=== PATIENT | female | born 1950 ===

== ENCOUNTER 2020-08-01 02:14 | Outpatient (CLI) | payer MEDICARE, BC, SELFPAY ==
[2020-08-01 11:21] LABS: Hemoglobin A1C 6.6 % (<5.7)
[2020-08-01 11:34] LABS: CREATININE 1.03 mg/dL (0.55-1.02); Calculated LDL 89 mg/dL (<100); Cholesterol 198 mg/dL (<200); Estimated GFR 53.45 (mL/min/1.73m2); HDL Cholesterol 88 mg/dL (40-60); Potassium 3.5 mmol/L (3.5-5.1); Triglyceride 105 mg/dL (<150)
== END 2020-08-01 02:34 ==
PROVIDERS: PCP Nurse Practitioner; Visit Provider Nurse Practitioner
DX: I10 Essential (primary) hypertension (principal); E78.5 Hyperlipidemia, unspecified; E11.9 Type 2 diabetes mellitus without complications; Z79.4 Long term (current) use of insulin
CPT/HCPCS: 36415; 80061; 82565; 83036; 84132

== ENCOUNTER 2021-02-06 04:00 | Outpatient (CLI) | payer MEDICARE, BC, SELFPAY ==
[2021-02-06 12:38] LABS: TSH 0.43 uIU/mL (0.36-3.74)
[2021-02-06 12:39] LABS: Hemoglobin A1C 7.1 % (<5.7)
== END 2021-02-06 04:01 | disposition home or self-care (01) ==
LOC: LOS 04:01
PROVIDERS: PCP Nurse Practitioner; Visit Provider Nurse Practitioner
DX: E11.9 Type 2 diabetes mellitus without complications (principal)
CPT/HCPCS: 36415; 83036; 84443

== ENCOUNTER 2021-02-07 02:46 | Outpatient (CLI) | payer MEDICARE, BC, SELFPAY ==
--- NOTE | 2021-02-07 07:30 | DI.MAMMO_ITS ---
Exam(s) MG MAMMO SCREENING EXAM: MG MAMMO SCREENING CLINICAL HISTORY: screening, Z12.39 TECHNIQUE: Mammograms were interpreted according to the usual protocol including computer analysis w ith CAD system, tomosynthesis and C-view imaging. COMPARISON: MG SCREENING MAMMOGRAM - MASTER from 07/15/2015 MG SCREENING MAMMOGRAM - MASTER from 07/15/2015 MG SCREENING MAMMOGRAM - MASTER from 07/20/2016 MG SCREENING MAMMOGRAM - MASTER from 07/20/2016 MG SCREENING MAMMOGRAM - MASTER from 07/26/2017 MG SCREENING MAMMOGRAM - MASTER from 07/26/2017 MG SCREENING MAMMOGRAM - MASTER from 12/27/2018 MG SCREENING MAMMOGRAM - MASTER from 12/27/2018 FINDINGS: The breasts are composed of scattered fibroglandular densities, Breast Density category B. No suspicious masses or suspicious microcalcifications are seen. A biopsy marker clip is again noted in the lateral left breast. No skin thickening or abnormal axillary lymph nodes are seen. There has been no significant change from prior exams. IMPRESSION: BI-RADS Category 1, Negative mammogram Yearly screening mammography is recommended. Breast Density - Category B, scattered fibroglandular densities. A negative radiographic report should not delay biopsy if a dominant or clinically suspicious mass is present. Up to ten percent of cancers are not identified on mammography. A negative report may reinforce clinical impression. Adenosis and dense breasts may obscure an underlying neoplasm. False positive reports average 6 to 10%. Patient will receive a letter notifying them of these results.
== END 2021-02-07 03:06 ==
PROVIDERS: PCP Nurse Practitioner; Visit Provider Nurse Practitioner
DX: Z12.31 Encounter for screening mammogram for malignant neoplasm of breast (principal)
CPT/HCPCS: 77063; 77067

== ENCOUNTER 2021-08-26 02:41 | Outpatient (CLI) | payer MEDICARE, BC, SELFPAY ==
[2021-08-26 13:50] LABS: Hemoglobin A1C 6.6 % (<5.7)
[2021-08-26 14:10] LABS: COMMENT (LAB VIEW ONLY) 235.81 mg/dL; Microalb ug/mg Crea 23.7 ug/mg Cr
[2021-08-26 15:07] LABS: ALT 47 U/L (14-59); BUN 25 mg/dL (7-18); CREATININE 1.1 mg/dL (0.55-1.02); Calcium 10.5 mg/dL (8.5-10.1); Chloride 103 mmol/L (98-107); Estimated GFR 49.39 (mL/min/1.73m2); Glucose 131 mg/dL (74-106); Potassium 3.5 mmol/L (3.5-5.1); Sodium 142 mmol/L (136-145); TSH 0.84 uIU/mL (0.36-3.74)
[2021-08-26 15:15] LABS: CREATININE 1.1 mg/dL (0.55-1.02); Estimated GFR 49.39 (mL/min/1.73m2); Potassium 3.4 mmol/L (3.5-5.1)
[2021-08-26 15:33] LABS: Calculated LDL 93 mg/dL (<100); Cholesterol 218 mg/dL (<200); HDL Cholesterol 89 mg/dL (40-60); Triglyceride 181 mg/dL (<150)
== END 2021-08-26 02:42 | disposition home or self-care (01) ==
LOC: LBO 02:41
PROVIDERS: PCP Nurse Practitioner; Visit Provider Nurse Practitioner
DX: I10 Essential (primary) hypertension (principal); E11.9 Type 2 diabetes mellitus without complications
CPT/HCPCS: 36415; 80048; 80061; 82043; 82565; 82570; 83036; 84132; 84443; 84460

== ENCOUNTER → 2022-03-09 18:37 | Outpatient (CLI) | payer MEDICARE, BC, SELFPAY ==
--- NOTE | 2022-03-09 15:30 | DI.RAD_ITS ---
Exam(s) XR FOOT RT COMPLETE EXAM: XR FOOT RT COMPLETE CLINICAL HISTORY: Pain right foot--M79.671, 4th and 5th metatarsal TECHNIQUE: COMPARISON: No exams were available for comparison FINDINGS: Three views were obtained. There is a mild hallux valgus deformity. There are farmer articular degener ative changes of the foot, most marked involving the tarsal metatarsal joints but also involving the IP joints. No other significant bony or soft tissue abnormality seen. IMPRESSION: RADIATION DOSE DELIVERED: Total DLP
== END ==
PROVIDERS: PCP Nurse Practitioner; Visit Provider Physician Assistant
DX: M20.11 Hallux valgus (acquired), right foot (principal); M24.174 Other articular cartilage disorders, right foot
CPT/HCPCS: 73630

== ENCOUNTER 2022-03-12 14:41 | Emergency (ER) | payer MEDICARE, BC, SELFPAY ==
[2022-03-12 14:59] VITALS: BP 119/68; PULSE 108; RESP 18; TEMP 36.7; O2SAT 98
[2022-03-12 16:38] LABS: Abs Immature Grans 0.04 10^3/uL (0.0-0.06); Absolute Basophil Count 0.08 10^3/uL (0.0-0.2); Absolute Lymphocyte Count 2.26 10^3/uL (1.2-3.4); Absolute Monocyte Count 1.04 10^3/uL (0.1-0.8); Basophils % 0.7; Eosinophils % 0.8; HCT 39.5 % (36.0-46.0); HGB 14.1 g/dL (11.2-15.7); Immature Grans % 0.3; Lymphocytes % 18.9; MCH 30.3 pg (27.0-33.0); MCHC 35.7 % (32.0-36.0); MCV 85 fL (80-95); Monocytes % 8.7; Neutrophils % 70.6; Platelet Count 265 10^3/uL (130-400); RBC 4.65 10^6/uL (3.93-5.22); RDW 12.4 % (11.7-14.6); WBC 11.97 10^3/uL (4.4-10.8)
[2022-03-12 16:39] LABS: Absolute Neutrophil Count 8.45 10^3/uL (1.2-6.7)
[2022-03-12 16:41] LABS: ESR 62 mm/hr (0-30)
[2022-03-12] MEDS: Normal Saline 500 ML IV (16:50)
[2022-03-12] MEDS: oxyCODONE 5 mg/Acetaminophen 325 mg TAB 1 TAB PO (16:52)
[2022-03-12 16:56] LABS: Uric Acid 8.7 mg/dL (2.6-6.0)
[2022-03-12 17:34] LABS: ALT 26 U/L (14-59); AST 16 U/L (15-37); Albumin 3.8 g/dL (3.4-5.0); Alkaline Phosphatase 67 U/L (46-116); Anion Gap 14.4 mmol/L (3-11); BUN 24 mg/dL (7-18); Bilirubin, Total 0.6 mg/dL (0.2-1.0); C-Reactive Protein 15.04 mg/dL (0.0-0.3); CO2 26.6 mmol/L (21.0-32.0); CREATININE 1.3 mg/dL (0.55-1.02); Chloride 96 mmol/L (98-107); Estimated GFR 40.61 (mL/min/1.73m2); Glucose 203 mg/dL (74-106); Sodium 137 mmol/L (136-145); Total Protein 8.4 g/dL (6.4-8.2)
[2022-03-12] MEDS: Potassium Chloride 20 MEQ TABCR 40 MEQ PO (18:08)
[2022-03-12] MEDS: Normal Saline 1,000 ML 1000 ML IV (18:08)
[2022-03-12 19:23] LABS: Lactate 1.7 mmol/L (0.6-1.4)
[2022-03-12] MEDS: Colchicine 0.6 MG TAB 1.2 MG PO (19:24)
[2022-03-12] MEDS: Colchicine 0.6 MG TAB PO (19:25)
--- NOTE | 2022-03-12 19:43 | NUR.NOTE ---
Referral faxed to [facility] to f/u 03/13/22 if at all possible for swollen painful foot. ?Gout.Nursing Note:
[2022-03-12 19:46] VITALS: BP 115/72; PULSE 96; RESP 18; TEMP 36.7; O2SAT 98
--- NOTE | 2022-03-12 22:38 | W.ED.GENAD ---
Discharge Plan Disposition Patient Disposition: HOME Condition: Stable Discharge Details Clinical Impression: Gout attack, Foot swelling Primary Care Provider: Jami Salomon ED Provider: Sharonda Valle Home Meds and New Rx's Prescriptions: New potassium chloride 20 mEq tablet extended release 20 meq PO DAILY Qty: 7 0RF cephalexin 500 mg capsule 500 mg PO Q6H 7 Days Qty: 28 0RF Continued metformin 1,000 mg tablet 1,000 mg PO BID aspirin [Adult Aspirin Regimen] 81 mg tablet,delayed release (DR/EC) 81 mg PO DAILY alprazolam 1 mg tablet 1 mg PO DAILY PRN Rx Instructions: UP TO 5 MG prn insulin aspart U-100 [Novolog Flexpen U-100 Insulin] 100 unit/mL (3 mL) insulin pen 70 unit SC DAILY Basaglar KwikPen U-100 Insulin 100 unit/mL (3 mL) insulin pen 28 unit SC DAILY ezetimibe [Zetia] 10 mg tablet 10 mg PO DAILY Qty: 90 4RF levothyroxine 125 mcg capsule 125 mcg PO DAILY Qty: 90 4RF quinapril-hydrochlorothiazide 20-12.5 mg tablet See Rx Instructions PO DAILY Qty: 135 4RF Rx Instructions: 1.5 tabs PO daily; Shingrix (PF) 50 mcg/0.5 mL suspension for reconstitution 0.5 ml IM ONCE Qty: 1 0RF Rx Instructions: as a single dose cholecalciferol (vitamin D3) 50 mcg (2,000 unit) capsule 50 mcg PO DAILY Discharge Instructions Instructions: Gout (ED) Additional Instructions: Take the colchine an hour after first dose with persistent pain and swelling tomorrow, take the keflex with yogurt daily elevate your foot recheck in 24 hours drink at leas 8, 8oz glasses daily return earlier should you have new or worsening complaints Referrals: Jami Salomon, SARA [Primary Care Provider] - Discharge Data Discharge Date/Time-TO BE ENTERED AT DEPARTURE: 03/12/22 19:44 Medical Decision Making Patient afebrile, presenting with exam consistent with gout although given patient's diabetes history concern for cellulitis CRP is elevated, uric acid is elevated Reviewed x-ray from patient visit on Wednesday does not show significant acute abnormality Nonfocal neurological exam Erythema without warmth, swelling noted, started patient on questioning, received 1 dose in the emergency department and will take repeat dose in an hour Instructed to start antibiotics if she does not have improvement in the morning Creatinine clearance of 30 I think 2 doses of colchicine is reasonable Lactate initially 3, likely secondary to dehydration with gap of 14 Blood glucose of 200, bicarbonate normal limits, no evidence of diabetic ketoacidosis Received 1.5 L of normal saline and one half of water Lactate repeated 1.5 and Low suspicion for sepsis clinically Recheck in 24 hours recommended Given very low threshold to return with new HPI General Date/Time Provider Initiated Documentation: 03/12/22 15:33. HPI Narrative: This 71-year-old female with history of chronic kidney disease, hypothyroidism, hypertension, hyperlipidemia, diabetes presents with persistent and worsening right foot pain. She states that she has some pain that started suddenly in the lateral aspect on the fibular side of her foot approximately a week ago. She states this weakness progressed she has noticed swelling in excruciating pain. She states that even light touch from the blanket causes discomfort. She is having difficulty ambulating secondary to discomfort. She denies prior history of similar symptoms in the past. She specifically denies any history of gout. She states that today she checked her temp and thought it was 100.6 at home. She has not taken any Tylenol today and did not have a fever upon initial presentation at urgent care her review and documentation. She denies any chills. She states that secondary to pain she has had decreased interest in food or fluids. She felt like she might be dehydrated. She denies any vomiting or diarrhea. She has any tick bite. Pain is exacerbated with any sort of palpation or ambulation. Related Data Home Medications Medication Instructions Recorded Confirmed alprazolam 1 mg tablet 1 mg PO DAILY PRN 04/16/20 03/12/22 aspirin 81 mg tablet,delayed 81 mg PO DAILY 04/16/20 03/12/22 release (Adult Aspirin Regimen) metformin 1,000 mg tablet 1,000 mg PO BID 04/16/20 03/12/22 insulin aspart U-100 100 unit/mL 70 unit subcut DAILY 08/06/20 03/12/22 (3 mL) subcutaneous pen (Novolog Flexpen U-100 Insulin aspart) cholecalciferol (vitamin D3) 50 50 mcg PO DAILY 08/14/20 03/12/22 mcg (2,000 unit) capsule insulin glargine 100 unit/mL (3 28 unit subcut DAILY 02/06/21 03/12/22 mL) subcutaneous pen (Basaglar KwikPen U-100 Insulin) ezetimibe 10 mg tablet (Zetia) 10 mg PO DAILY #90 tabs 22 03/12/22 levothyroxine 125 mcg capsule 125 mcg PO DAILY #90 caps 08/28/21 03/12/22 quinapril 20 See Rx Instructions PO DAILY #135 08/28/21 03/12/22 mg-hydrochlorothiazide 12.5 mg tabs tablet varicella-zoster glycoE [id number] 0.5 ml IM ONCE #1 ea 08/28/21 03/12/22 adj(PF) 50 mcg/0.5 mL IM susp, kit (Shingrix (PF)) cephalexin 500 mg capsule 500 mg PO Q6H 7 days #28 caps 03/12/22 potassium chloride 20 mEq 20 meq PO DAILY #7 tabs 03/12/22 tablet,extended release Previous Rx's Medication Instructions Recorded ezetimibe 10 mg tablet (Zetia) 10 mg PO DAILY #90 tabs 08/28/21 levothyroxine 125 mcg capsule 125 mcg PO DAILY #90 caps 08/28/21 quinapril 20 See Rx Instructions PO DAILY #135 08/28/21 mg-hydrochlorothiazide 12.5 mg tabs tablet varicella-zoster glycoE [id number] 0.5 ml IM ONCE #1 ea 08/28/21 adj(PF) 50 mcg/0.5 mL IM susp, kit (Shingrix (PF)) cephalexin 500 mg capsule 500 mg PO Q6H 7 days #28 caps 03/12/22 potassium chloride 20 mEq 20 meq PO DAILY #7 tabs 03/12/22 tablet,extended release Allergies Allergy/AdvReac Type Severity Reaction Status Date / Time No Known Allergies Allergy Verified 03/12/22 15:02 General Stated Complaint: Cellulitis DENIA: 3 Review of Systems All systems reviewed & are unremarkable except as noted in HPI and below PFSH All Active Problems (Updated 03/12/22 @ 19:35 by JEANMARIE Mahajan) Gout attack (Acute) Foot swelling (Acute) Sciatic nerve pain (Acute) CKD stage 3 due to type 2 diabetes mellitus (Acute) Osteoarthritis (Chronic) Hypothyroid (Chronic) Hyperlipemia (Acute) HTN (hypertension) (Chronic) Diabetes (Chronic) Medical History Abnormal Pap smear of cervix (~1984) Cervical dysplasia Herpes zoster Family History Mother , 74 Diabetes Father , 66 Diabetes Stroke Maternal Grandfather , 84 No problems noted. Paternal Grandfather , 65's No problems noted. Maternal Grandmother , 100 No problems noted. Paternal Grandmother , 80's No problems noted. Social History Smoking/Tobacco Use Status: Former Tobacco Use tobacco type: cigarettes Tobacco: How many years used: 35 Second Hand Exposure: Yes Smoking risk assessment performed?: Yes Alcohol Intake: never Drug use: Never Substance use type: does not use Household members: spouse Housing: house Communication Needs: None Do you need help understanding health information?: Rarely Pets and animals: Yes Pets and animals: cat(s) Sexually active: Yes Do you think of yourself as: straight/heterosexual Current gender identity: female What is your relationship status?: How often do you talk on the phone with friends or family?: twice per week How often do you get together with friends or relatives?: once per week How often do you attend congregation or evangelical services?: decline to answer Do you belong to any clubs or organized social groups?: no Panel score (0-1 are the most socially isolated patients): 2 Gina/Church: No preference Seatbelt use: always Drive intox or ride w/intox race car driver: No Do you feel safe at home: Yes Do you feel safe in your relationship?: Yes Exam Const General: cooperative, comfortable and no acute distress Resp Effort & Inspection: normal respiratory effort Auscultation: clear to auscultation bilaterally Cardio Rate: tachycardic Rhythm: regular rhythm Heart Sounds: no murmurs Skin Other: See below Neuro General: patient alert and patient oriented x3 Sensory Exam: sensory deficits noted Extrem Other: Right lower extremity, specifically right foot with swelling, tenderness with light touch, mild erythema, DP and PT pulses intact, brisk capillary refill distally, sensation intact distally, no crepitus Course Vital Signs Vital signs: Vital Signs Temperature 36.7 C 03/12/22 14:59 Pulse 108 H 03/12/22 14:59 Respiratory Rate 18 03/12/22 14:59 Blood Pressure 119/68 03/12/22 14:59 Pulse Oximetry 98 03/12/22 14:59 Temperature 36.7 C 03/12/22 19:46 Temperature Source Temporal Artery Scan 03/12/22 14:59 Pulse 96 H 03/12/22 19:46 Respiratory Rate 18 03/12/22 19:46 Respiratory Effort Non-Labored 03/12/22 15:03 Blood Pressure 115/72 03/12/22 19:46 Blood Pressure Position Sitting 03/12/22 14:59 Pulse Oximetry 98 03/12/22 19:46 Oxygen Delivery Method Room Air 03/12/22 14:59 Oxygen Flow Rate 0 03/12/22 14:59 Pain Level 7 03/12/22 19:46 Lab/Test Results Lab/Test Results: 03/12/22 16:45 Blood Blood Culture - Pending 03/12/22 16:25 Blood Blood Culture - Pending Laboratory Tests Range/Units 03/12/22 03/12/22 03/12/22 16:25 16:25 16:25 WBC (4.4-10.8) 10^3/uL RBC (3.93-5.22) 10^6/uL Hgb (11.2-15.7) g/dL Hct (36.0-46.0) % MCV (80-95) fL MCH (27.0-33.0) pg MCHC (32.0-36.0) % RDW (11.7-14.6) % Plt Count (130-400) 10^3/uL MPV (8.0-11.0) fL Immature Gran % Neutrophils % Lymphocytes % Monocytes % Eosinophils % Basophils % Nucleated RBC % (0.0-0.3) % Absolute Neutrophils (1.2-6.7) 10^3/uL Absolute Lymphocytes (1.2-3.4) 10^3/uL Absolute Monocytes (0.1-0.8) 10^3/uL Absolute Eosinophils (0.0-0.7) 10^3/uL Absolute Basophils (0.0-0.2) 10^3/uL ESR (0-30) mm/hr 62 H VBG Lactate (0.6-1.4) mmol/L 3.0 H* Sodium (136-145) mmol/L 137 Potassium (3.5-5.1) mmol/L 3.0 L Chloride (98-107) mmol/L 96 L Carbon Dioxide (21.0-32.0) mmol/L 26.6 Anion Gap (3-11) mmol/L 14.4 H BUN (7-18) mg/dL 24 H Creatinine (0.55-1.02) mg/dL 1.3 H Estimated GFR/1.73 m2 (mL/min/1.73m2) 40.61 Glucose (74-106) mg/dL 203 H Uric Acid (2.6-6.0) mg/dL Calcium (8.5-10.1) mg/dL 10.0 Total Bilirubin (0.2-1.0) mg/dL 0.6 AST (15-37) U/L 16 ALT (14-59) U/L 26 Alkaline Phosphatase (46-116) U/L 67 C-Reactive Protein (0.0-0.3) mg/dL 15.04 H Total Protein (6.4-8.2) g/dL 8.4 H Albumin (3.4-5.0) g/dL 3.8 Range/Units 03/12/22 03/12/22 03/12/22 16:25 16:25 19:00 WBC (4.4-10.8) 10^3/uL 11.97 H RBC (3.93-5.22) 10^6/uL 4.65 Hgb (11.2-15.7) g/dL 14.1 Hct (36.0-46.0) % 39.5 MCV (80-95) fL 85 MCH (27.0-33.0) pg 30.3 MCHC (32.0-36.0) % 35.7 RDW (11.7-14.6) % 12.4 Plt Count (130-400) 10^3/uL 265 MPV (8.0-11.0) fL 10.0 Immature Gran % 0.3 Neutrophils % 70.6 Lymphocytes % 18.9 Monocytes % 8.7 Eosinophils % 0.8 Basophils % 0.7 Nucleated RBC % (0.0-0.3) % 0.0 Absolute Neutrophils (1.2-6.7) 10^3/uL 8.45 H Absolute Lymphocytes (1.2-3.4) 10^3/uL 2.26 Absolute Monocytes (0.1-0.8) 10^3/uL 1.04 H Absolute Eosinophils (0.0-0.7) 10^3/uL 0.10 Absolute Basophils (0.0-0.2) 10^3/uL 0.08 ESR (0-30) mm/hr VBG Lactate (0.6-1.4) mmol/L 1.7 H Sodium (136-145) mmol/L Potassium (3.5-5.1) mmol/L Chloride (98-107) mmol/L Carbon Dioxide (21.0-32.0) mmol/L Anion Gap (3-11) mmol/L BUN (7-18) mg/dL Creatinine (0.55-1.02) mg/dL Estimated GFR/1.73 m2 (mL/min/1.73m2) Glucose (74-106) mg/dL Uric Acid (2.6-6.0) mg/dL 8.7 H Calcium (8.5-10.1) mg/dL Total Bilirubin (0.2-1.0) mg/dL AST (15-37) U/L ALT (14-59) U/L Alkaline Phosphatase (46-116) U/L C-Reactive Protein (0.0-0.3) mg/dL Total Protein (6.4-8.2) g/dL Albumin (3.4-5.0) g/dL
== END 2022-03-12 19:44 | disposition home or self-care (01) ==
PROVIDERS: Emergency Provider Physician Assistant; PCP Nurse Practitioner
DX: M10.9 Gout, unspecified (principal); L53.9 Erythematous condition, unspecified; I12.9 Hypertensive chronic kidney disease with stage 1 through stage 4 chronic kidney disease, or unspecified chronic kidney disease; E11.22 Type 2 diabetes mellitus with diabetic chronic kidney disease; N18.9 Chronic kidney disease, unspecified; Z79.4 Long term (current) use of insulin; Z79.82 Long term (current) use of aspirin; Z87.891 Personal history of nicotine dependence
CPT/HCPCS: 36415; 80053; 85652; 87040; 96360; 96361; 99283; 83605; 84550; 85025; 86140; 99284

== ENCOUNTER 2022-04-02 18:17 | Outpatient (REF) | payer MEDICARE, BC, SELFPAY ==
[2022-04-02 21:34] LABS: Abs Immature Grans 0.07 10^3/uL (0.0-0.06); Absolute Basophil Count 0.04 10^3/uL (0.0-0.2); Absolute Eosinophil Count 0.29 10^3/uL (0.0-0.7); Absolute Lymphocyte Count 2.41 10^3/uL (1.2-3.4); Absolute Monocyte Count 1.06 10^3/uL (0.1-0.8); Basophils % 0.3; Eosinophils % 2.4; HCT 38.5 % (36.0-46.0); HGB 13.6 g/dL (11.2-15.7); Immature Grans % 0.6; MCH 29.7 pg (27.0-33.0); MCHC 35.3 % (32.0-36.0); MCV 84 fL (80-95); MPV 10.8 fL (8.0-11.0); Monocytes % 8.8; Neutrophils % 67.9; Platelet Count 308 10^3/uL (130-400); RBC 4.58 10^6/uL (3.93-5.22); RDW 12.9 % (11.7-14.6); RDW-SD 39.1 fL; WBC 12.07 10^3/uL (4.4-10.8)
[2022-04-02 21:57] LABS: ALT 34 U/L (14-59); AST 14 U/L (15-37); Albumin 3.4 g/dL (3.4-5.0); Alkaline Phosphatase 73 U/L (46-116); Anion Gap 11.7 mmol/L (3-11); BUN 32 mg/dL (7-18); Bilirubin, Total 0.3 mg/dL (0.2-1.0); CO2 28.3 mmol/L (21.0-32.0); CREATININE 1.2 mg/dL (0.55-1.02); Calcium 9.9 mg/dL (8.5-10.1); Chloride 100 mmol/L (98-107); Estimated GFR 44.54 (mL/min/1.73m2); Glucose 201 mg/dL (74-106); Potassium 3.2 mmol/L (3.5-5.1); Sodium 140 mmol/L (136-145); Total Protein 7.2 g/dL (6.4-8.2); Uric Acid 8.9 mg/dL (2.6-6.0)
== END 2022-04-02 18:18 | disposition home or self-care (01) ==
LOC: LBN 18:17
PROVIDERS: PCP Nurse Practitioner; Visit Provider Nurse Practitioner Family
DX: M10.9 Gout, unspecified (principal)
CPT/HCPCS: 80053; 84550; 85025

== ENCOUNTER 2022-05-28 04:02 | Outpatient (CLI) | payer MEDICARE, BC, SELFPAY ==
[2022-05-28 15:32] LABS: ALT 31 U/L (14-59); AST 20 U/L (15-37); Albumin 3.8 g/dL (3.4-5.0); Alkaline Phosphatase 68 U/L (46-116); Anion Gap 10.4 mmol/L (3-11); BUN 19 mg/dL (7-18); Bilirubin, Total 0.3 mg/dL (0.2-1.0); CO2 26.6 mmol/L (21.0-32.0); CREATININE 1.1 mg/dL (0.55-1.02); Calcium 9.5 mg/dL (8.5-10.1); Chloride 105 mmol/L (98-107); Estimated GFR 54.39 (mL/min/1.73m2); Glucose 242 mg/dL (74-106); Potassium 3.3 mmol/L (3.5-5.1); Sodium 142 mmol/L (136-145); Total Protein 7.8 g/dL (6.4-8.2)
[2022-05-29 12:56] LABS: Parathyroid Hormone,Intact 63 pg/mL (19-88)
[2022-06-02 15:41] LABS: PTH-Related Peptide 0.4 pmol/L (< or = 4.2)
== END 2022-05-28 04:03 | disposition home or self-care (01) ==
PROVIDERS: PCP Nurse Practitioner; Visit Provider Nurse Practitioner Family
DX: R79.89 Other specified abnormal findings of blood chemistry (principal)
CPT/HCPCS: 36415; 80053; 82306; 82397; 83970

== ENCOUNTER 2022-06-15 02:35 | Outpatient (CLI) | payer MEDICARE, BC, SELFPAY ==
[2022-06-15 14:20] LABS: ALT 51 U/L (14-59); AST 33 U/L (15-37); BUN 16 mg/dL (7-18); CREATININE 0.9 mg/dL (0.55-1.02); Calcium 9.8 mg/dL (8.5-10.1); Calculated LDL 105 mg/dL (<100); Chloride 104 mmol/L (98-107); Cholesterol 215 mg/dL (<200); Glucose 113 mg/dL (74-106); HDL Cholesterol 79 mg/dL (40-60); Potassium 3.3 mmol/L (3.5-5.1); Sodium 142 mmol/L (136-145); TSH 0.62 uIU/mL (0.36-3.74); Triglyceride 158 mg/dL (<150)
[2022-06-15 14:55] LABS: Vitamin D 25 Total 52.3 ng/mL (30-100)
== END 2022-06-15 02:36 | disposition home or self-care (01) ==
PROVIDERS: Student in an Organized Health Care Education/Training Program; PCP Nurse Practitioner Family; Visit Provider Internal Medicine Endocrinology, Diabetes & Metabolism
DX: E11.9 Type 2 diabetes mellitus without complications (principal); E83.52 Hypercalcemia
CPT/HCPCS: 36415; 80048; 80061; 82306; 84443; 84450; 84460

== ENCOUNTER 2022-07-06 03:16 | Outpatient (CLI) | payer MEDICARE, BC, SELFPAY ==
[2022-07-06 13:13] LABS: ALT 53 U/L (14-59); AST 34 U/L (15-37); Albumin 4.1 g/dL (3.4-5.0); Alkaline Phosphatase 80 U/L (46-116); Anion Gap 10.5 mmol/L (3-11); BUN 28 mg/dL (7-18); Bilirubin, Total 0.5 mg/dL (0.2-1.0); CO2 28.5 mmol/L (21.0-32.0); CREATININE 1.3 mg/dL (0.55-1.02); Calcium 10.3 mg/dL (8.5-10.1); Chloride 101 mmol/L (98-107); Estimated GFR 44.51 (mL/min/1.73m2); Glucose 157 mg/dL (74-106); Potassium 3.6 mmol/L (3.5-5.1); Sodium 140 mmol/L (136-145); Total Protein 8.2 g/dL (6.4-8.2); Uric Acid 5.2 mg/dL (2.6-6.0)
== END 2022-07-06 03:17 | disposition home or self-care (01) ==
PROVIDERS: PCP Nurse Practitioner Family; Visit Provider Nurse Practitioner Family
DX: I10 Essential (primary) hypertension (principal); M10.9 Gout, unspecified
CPT/HCPCS: 36415; 80053; 84550

== ENCOUNTER 2022-08-26 03:24 | Outpatient (CLI) | payer MEDICARE, BC, SELFPAY ==
[2022-08-26 14:49] LABS: ALT 53 U/L (14-59); AST 40 U/L (15-37); Alkaline Phosphatase 97 U/L (46-116); Anion Gap 10.3 mmol/L (3-11); BUN 18 mg/dL (7-18); Bilirubin, Total 0.5 mg/dL (0.2-1.0); CO2 28.7 mmol/L (21.0-32.0); CREATININE 0.9 mg/dL (0.55-1.02); Calcium 9.9 mg/dL (8.5-10.1); Chloride 105 mmol/L (98-107); Glucose 114 mg/dL (74-106); Potassium 3.3 mmol/L (3.5-5.1); Sodium 144 mmol/L (136-145); Total Protein 7.8 g/dL (6.4-8.2)
== END 2022-08-26 03:25 | disposition home or self-care (01) ==
LOC: LBO 03:24
PROVIDERS: PCP Nurse Practitioner Family; Visit Provider Nurse Practitioner Family
DX: I10 Essential (primary) hypertension (principal)
CPT/HCPCS: 36415; 80053

== ENCOUNTER 2022-10-05 02:39 | Outpatient (CLI) | payer MEDICARE, BC, SELFPAY ==
[2022-10-05 11:10] LABS: ALT 37 U/L (14-59); AST 19 U/L (15-37); Alkaline Phosphatase 100 U/L (46-116); Anion Gap 7.9 mmol/L (3-11); BUN 26 mg/dL (7-18); Bilirubin, Total 0.4 mg/dL (0.2-1.0); CO2 28.1 mmol/L (21.0-32.0); Calcium 10.2 mg/dL (8.5-10.1); Chloride 106 mmol/L (98-107); Estimated GFR 60.61 (mL/min/1.73m2); Glucose 181 mg/dL (74-106); Potassium 4.3 mmol/L (3.5-5.1); Sodium 142 mmol/L (136-145); Uric Acid 3.8 mg/dL (2.6-6.0)
== END 2022-10-05 02:40 | disposition home or self-care (01) ==
PROVIDERS: PCP Nurse Practitioner Family; Visit Provider Nurse Practitioner Family
DX: M10.9 Gout, unspecified (principal); E11.22 Type 2 diabetes mellitus with diabetic chronic kidney disease; I10 Essential (primary) hypertension; N18.30 Chronic kidney disease, stage 3 unspecified; Z79.4 Long term (current) use of insulin
CPT/HCPCS: 36415; 80053; 84550

== ENCOUNTER 2022-10-29 04:19 | Outpatient (CLI) | payer MEDICARE, BC, SELFPAY ==
[2022-10-29 16:13] LABS: Hemoglobin A1C 6.7 % (<5.7)
[2022-10-29 17:09] LABS: COMMENT (LAB VIEW ONLY) 219.14 mg/dL; Microalb ug/mg Crea 41.9 ug/mg Cr
== END 2022-10-29 04:20 | disposition home or self-care (01) ==
PROVIDERS: PCP Nurse Practitioner Family; Visit Provider Internal Medicine Endocrinology, Diabetes & Metabolism
DX: E11.65 Type 2 diabetes mellitus with hyperglycemia (principal)
CPT/HCPCS: 36415; 82043; 82570; 83036

== ENCOUNTER 2022-10-29 15:41 | Outpatient (CLI) | payer MEDICARE, BC, SELFPAY ==
--- NOTE | 2022-10-29 15:45 | DI.RAD_ITS ---
Exam(s) XR FOOT LT COMPLETE EXAM: XR FOOT LT COMPLETE CLINICAL HISTORY: foot pain M79.671 M79.672. TECHNIQUE: 2D digital imaging was performed of the left foot. Three images were obtained. AP, obli que and lateral views were obtained. COMPARISON: No priors for comparison. FINDINGS: BONES: No acute fracture is present. No bony destructive lesion is seen. There is a hallux valgus def ormity. There is a small enthesophyte at the posterior calcaneus. JOINTS: No dislocation present. There are degenerative changes seen in the left foot characterized by joint space narrowing and bony hypertrophy. Findings are most marked at the tarsometatarsal joints and 1st MTP joint. SOFT TISSUE: Atherosclerosis is present. IMPRESSION: Degenerative changes of the foot. DATA REPOSITORY: RADIATION DOSE DELIVERED:
--- NOTE | 2022-10-29 15:46 | DI.RAD_ITS ---
Exam(s) XR FOOT RT COMPLETE EXAM: XR FOOT RT COMPLETE CLINICAL HISTORY: foot pain M79.671 M79.672. TECHNIQUE: 2D digital imaging was performed of the right foot. Three images were obtained. AP, obl ique and lateral views were obtained. COMPARISON: CR XR FOOT RT COMPLETE from 03/09/2022 FINDINGS: BONES: No acute fracture is present. No bony destructive lesion is seen. There is a mild hallux valgu s deformity. JOINTS: No dislocation present. Degenerative changes are seen in the foot characterized by joint spac e narrowing and bony hypertrophy. The findings are most marked at the interphalangeal joints and the 1st MTP joint. SOFT TISSUE: Atherosclerosis. IMPRESSION: Degenerative changes of the right foot. DATA REPOSITORY: RADIATION DOSE DELIVERED:
== END 2022-10-29 16:01 ==
LOC: DI 15:42
PROVIDERS: PCP Nurse Practitioner Family; Visit Provider Podiatrist Foot & Ankle Surgery
DX: M79.671 Pain in right foot (principal); M79.672 Pain in left foot; M20.11 Hallux valgus (acquired), right foot; M19.071 Primary osteoarthritis, right ankle and foot; M19.072 Primary osteoarthritis, left ankle and foot; M20.12 Hallux valgus (acquired), left foot
CPT/HCPCS: 36415; 73630; 82043; 82570; 83036

== ENCOUNTER 2022-12-25 00:56 | Outpatient (CLI) | payer MEDICARE, BC, SELFPAY ==
--- NOTE | 2022-12-25 08:45 | DI.DEXA_ITS ---
Exam(s) XR DEXA BONE DENSITY W/WO MICHELLE EXAM: XR DEXA BONE DENSITY W/WO MICHELLE CLINICAL HISTORY: screening FOR OSTEOPOROSIS IN POSTMENOPAUSAL WOMAN,Z78.0 TECHNIQUE: COMPARISON: No exams were available for comparison FINDINGS: Lateral Spine Image: Unremarkable. No compression deformities identified. Left hip: Total T-Score: -1.0 Total Z-Score: 0.5 T- and Z-scores: Within normal limits. There is osteopenia in the femoral neck with a T-score of -2.1 . Lumbar Spine: Total T-Score: 2.0 Total Z-Score: 4.2 T- and Z-scores: Within normal limits. IMPRESSION: No evidence of osteoporosis.
--- NOTE | 2022-12-25 08:45 | DI.MAMMO_ITS ---
Exam(s) MAMMO SCREENING EXAM: MAMMO SCREENING CLINICAL HISTORY: screening,Z12.39 TECHNIQUE: Bilateral full field digital CC and MLO mammographic images were obtained with 3D tomosyn thesis and utilizing computer aided detection (CAD). COMPARISON: Available for comparison. FINDINGS: Masses/Architectural Distortion: There are stable nodules in both breasts. There is a biopsy clip in the left breast which is unchanged. No suspicious nodules or areas of architectural distortion are present. Microcalcifications: No suspicious pleomorphic-type are seen. Skin Thickening/Nipple Retraction: None. IMPRESSION: 1. No significant interval change with no specific features of malignancy noted. 2. Unless there is more urgent need, screening mammography is recommended, as per [employer] guidelines. BI-RADS Category 2 - Benign Findings Breast Density - Category B - Scattered areas of fibroglandular density Breast density category C or D implies that the patient has dense breast tissue. Dense breast tissue is very common and is not abnormal but dense breast tissue can make it harder to find cancer on a ma mmogram. Also, dense breast tissue may increase their breast cancer risk. This information about the result of the mammogram report was provided to the patient to raise their awareness. Use this report when you speak with the patient about their risks for breast cancer, which includes their family hist ory. At that time, you may recommend for more screening tests (Ultrasound or MRI) as they might be us eful based on their risk. A negative radiographic report should not delay biopsy if a dominant or clinically suspicious mass is present. Up to ten percent of cancers are not identified on mammography. A negative report may reinforce clinical impression. Adenosis and dense breasts may obscure an underlying neoplasm. False positive reports average 6 to 10%. Patient will receive a letter notifying them of these results.
== END 2022-12-25 01:16 ==
LOC: DI 00:57
PROVIDERS: PCP Nurse Practitioner Family; Visit Provider Nurse Practitioner Family
DX: Z12.31 Encounter for screening mammogram for malignant neoplasm of breast (principal); Z78.0 Asymptomatic menopausal state
CPT/HCPCS: 77063; 77067; 77080

== ENCOUNTER 2023-05-03 02:17 | Outpatient (CLI) | payer MEDICARE, BC, SELFPAY ==
[2023-05-03 12:53] LABS: BUN 20 mg/dL (7-18); Calcium 10.3 mg/dL (8.5-10.1); Chloride 106 mmol/L (98-107); Estimated GFR 60.61 (mL/min/1.73m2); Glucose 145 mg/dL (74-106); Potassium 3.6 mmol/L (3.5-5.1); Sodium 143 mmol/L (136-145)
== END 2023-05-03 02:18 | disposition home or self-care (01) ==
LOC: LBO 02:17
PROVIDERS: PCP Nurse Practitioner Family; Visit Provider Nurse Practitioner Family
DX: I10 Essential (primary) hypertension (principal)
CPT/HCPCS: 36415; 80048

== ENCOUNTER 2023-10-19 04:23 | Outpatient (CLI) | payer MEDICARE, SELFPAY ==
[2023-10-19 16:42] LABS: ALT 48 U/L (14-59); AST 32 U/L (15-37); Albumin 3.9 g/dL (3.4-5.0); Alkaline Phosphatase 83 U/L (46-116); Anion Gap 14.7 mmol/L (3-11); BUN 28 mg/dL (7-18); Bilirubin, Total 0.4 mg/dL (0.2-1.0); CO2 23.3 mmol/L (21.0-32.0); CREATININE 1.3 mg/dL (0.55-1.02); Calcium 10.4 mg/dL (8.5-10.1); Calculated LDL 84 mg/dL (<100); Chloride 106 mmol/L (98-107); Cholesterol 210 mg/dL (<200); Estimated GFR 43.96 (mL/min/1.73m2); Glucose 196 mg/dL (74-106); HDL Cholesterol 95 mg/dL (40-60); Potassium 3.5 mmol/L (3.5-5.1); Sodium 144 mmol/L (136-145); Triglyceride 156 mg/dL (<150)
== END 2023-10-19 04:24 | disposition home or self-care (01) ==
LOC: LBO 04:23
PROVIDERS: PCP Nurse Practitioner Family; Visit Provider Nurse Practitioner Family
DX: I10 Essential (primary) hypertension (principal); E03.9 Hypothyroidism, unspecified; E78.2 Mixed hyperlipidemia; M10.9 Gout, unspecified; E11.22 Type 2 diabetes mellitus with diabetic chronic kidney disease; N18.30 Chronic kidney disease, stage 3 unspecified; Z79.4 Long term (current) use of insulin
CPT/HCPCS: 36415; 80053; 80061; 82043; 82570; 84443

== ENCOUNTER 2023-10-20 16:56 | Outpatient (REF) | payer MEDICARE, SELFPAY ==
[2023-10-20 19:38] LABS: Microalb ug/mg Crea 177.5 ug/mg Cr
== END 2023-10-20 16:57 | disposition home or self-care (01) ==
LOC: LBN 16:56
PROVIDERS: PCP Nurse Practitioner Family; Visit Provider Nurse Practitioner Family
DX: I10 Essential (primary) hypertension (principal); E03.9 Hypothyroidism, unspecified; E11.22 Type 2 diabetes mellitus with diabetic chronic kidney disease; N18.30 Chronic kidney disease, stage 3 unspecified; Z79.4 Long term (current) use of insulin
CPT/HCPCS: 82043; 82570

== ENCOUNTER 2024-03-22 03:22 | Outpatient (CLI) | payer MEDICARE, BC, SELFPAY ==
[2024-03-22 12:50] LABS: Anion Gap 9.6 mmol/L (3-11); BUN 18 mg/dL (7-18); CO2 26.4 mmol/L (21.0-32.0); CREATININE 1.1 mg/dL (0.55-1.02); Calcium 9.4 mg/dL (8.5-10.1); Chloride 107 mmol/L (98-107); Estimated GFR 53.72 (mL/min/1.73m2); Glucose 115 mg/dL (74-106); Potassium 3.4 mmol/L (3.5-5.1); Sodium 143 mmol/L (136-145)
== END 2024-03-22 03:23 | disposition home or self-care (01) ==
PROVIDERS: PCP Nurse Practitioner Family; Visit Provider Nurse Practitioner Family
DX: E83.52 Hypercalcemia (principal)
CPT/HCPCS: 36415; 80048

== ENCOUNTER 2024-10-19 02:28 | Outpatient (CLI) | payer MEDICARE, BC, SELFPAY ==
[2024-10-19 15:26] LABS: HCT 39.7 % (36.0-46.0); HGB 13.5 g/dL (11.2-15.7); MCH 29.8 pg (27.0-33.0); MCV 88 fL (80-95); MPV 9.8 fL (8.0-11.0); Platelet Count 224 10^3/uL (130-400); RBC 4.53 10^6/uL (3.93-5.22); RDW 13.4 % (11.7-14.6); RDW-SD 42.7 fL; WBC 7.99 10^3/uL (4.4-10.8)
[2024-10-19 15:33] LABS: Hemoglobin A1C 6.5 % (<5.7)
[2024-10-19 17:15] LABS: ALT 37 U/L (14-59); AST 26 U/L (15-37); Albumin 4.1 g/dL (3.4-5.0); Alkaline Phosphatase 92 U/L (46-116); Anion Gap 11.2 mmol/L (3-11); BUN 25 mg/dL (7-18); Bilirubin, Total 0.4 mg/dL (0.2-1.0); CO2 26.8 mmol/L (21.0-32.0); CREATININE 1.1 mg/dL (0.55-1.02); Calcium 10.5 mg/dL (8.5-10.1); Calculated LDL 86 mg/dL (<100); Chloride 108 mmol/L (98-107); Cholesterol 219 mg/dL (<200); Estimated GFR 53.39 (mL/min/1.73m2); Glucose 95 mg/dL (74-106); HDL Cholesterol 101 mg/dL (>or=50); Sodium 146 mmol/L (136-145); TSH (W/Ref FT4) 0.14 uIU/mL (0.36-3.74); Triglyceride 164 mg/dL (<150)
[2024-10-20 10:52] LABS: Measles IgG Antibody Positive (See Note)
[2024-10-20 18:19] LABS: T4, Free 1.9 ng/dL (0.8-2.2)
== END 2024-10-19 02:29 | disposition home or self-care (01) ==
PROVIDERS: PCP Nurse Practitioner Family; Visit Provider Nurse Practitioner Family
DX: Z79.4 Long term (current) use of insulin (principal); E11.9 Type 2 diabetes mellitus without complications; Z00.00 Encounter for general adult medical examination without abnormal findings; E03.9 Hypothyroidism, unspecified; E11.22 Type 2 diabetes mellitus with diabetic chronic kidney disease; N18.30 Chronic kidney disease, stage 3 unspecified; I10 Essential (primary) hypertension; E78.2 Mixed hyperlipidemia
CPT/HCPCS: 36415; 80053; 80061; 85027; 83036; 84439; 84443; 86765

== ENCOUNTER 2024-11-09 01:27 | Outpatient (CLI) | payer MEDICARE, BC, SELFPAY ==
--- NOTE | 2024-11-09 07:45 | DI.MAMMO_ITS ---
Exam(s) MAMMO SCREENING EXAM: MAMMO SCREENING CLINICAL HISTORY: screening,Z12.39 TECHNIQUE: Bilateral full field digital CC and MLO mammographic images were obtained with 3D tomosyn thesis and utilizing computer aided detection (CAD). COMPARISON: Available for comparison. FINDINGS: Masses/Architectural Distortion: No suspicious masses or areas of architectural distortion are presen t. There are stable nodules in the right breast. There is a stable biopsy clip in the outer left br east. Microcalcifications: No suspicious pleomorphic-type are seen. Skin Thickening/Nipple Retraction: None. IMPRESSION: 1. No significant interval change with no specific features of malignancy noted. 2. Unless there is more urgent need, screening mammography is recommended, as per [employer] guidelines. BI-RADS Category 2 - Benign Findings Breast Density - Category A - Almost entirely fatty Breast density category C or D implies that the patient has dense breast tissue. Dense breast tissue is very common and is not abnormal but dense breast tissue can make it harder to find cancer on a ma mmogram. Also, dense breast tissue may increase their breast cancer risk. This information about the result of the mammogram report was provided to the patient to raise their awareness. Use this report when you speak with the patient about their risks for breast cancer, which includes their family hist ory. At that time, you may recommend for more screening tests (Ultrasound or MRI) as they might be us eful based on their risk. A negative radiographic report should not delay biopsy if a dominant or clinically suspicious mass is present. Up to ten percent of cancers are not identified on mammography. A negative report may reinforce clinical impression. Adenosis and dense breasts may obscure an underlying neoplasm. False positive reports average 6 to 10%. Patient will receive a letter notifying them of these results.
== END 2024-11-09 01:47 ==
LOC: DI 01:28
PROVIDERS: PCP Nurse Practitioner Family; Visit Provider Nurse Practitioner Family
DX: Z12.31 Encounter for screening mammogram for malignant neoplasm of breast (principal); R92.313 Mammographic fatty tissue density, bilateral breasts; D24.1 Benign neoplasm of right breast; D24.2 Benign neoplasm of left breast
CPT/HCPCS: 77063; 77067

== ENCOUNTER 2025-05-02 03:29 | Outpatient (CLI) | payer MEDICARE, BC, SELFPAY ==
--- NOTE | 2025-05-02 12:10 | DI.US_ITS ---
Exam(s) US ABDOMEN EXAM: US ABDOMEN CLINICAL HISTORY: LUQ pain, intermittent,r10.12 TECHNIQUE: Ultrasound abdomen performed using standard protocol. COMPARISON: No exams were available for comparison FINDINGS: ABDOMINAL AORTA AND IVC: Visualized portions normal caliber. PANCREAS: Normal where visualized. LIVER: There is diffuse increased echogenicity of the liver consistent with fatty infiltration. Hepatopetal flow in the Portal Vein. No evidence of a hepatic mass. The liver measures 16.3cm long. GALLBLADDER:No evidence of cholelithiasis. No evidence of wall thickening. No pericholecystic fluid identified. BILIARY SYSTEM: Common bile duct measures < 7 mm. No intrahepatic biliary ductal dilation. GARCES'S SIGN: Negative. KIDNEYS: Kidneys are symmetric in size. Nonobstructing renal stones are seen on the left kidney. The largest measures 5 mm and is located in the midpole. No evidence of hydronephrosis. No renal mass or cyst identified. SPLEEN: Not enlarged. ASCITES: None seen. IMPRESSION: 1. Hepatic steatosis. 2. Left nephrolithiasis. No obstructive uropathy. DATA REPOSITORY:
== END 2025-05-02 03:49 ==
LOC: DI 03:29
PROVIDERS: PCP Nurse Practitioner Family; Visit Provider Nurse Practitioner Family
DX: K76.0 Fatty (change of) liver, not elsewhere classified (principal); N20.0 Calculus of kidney
CPT/HCPCS: 76700

== ENCOUNTER 2025-05-02 04:05 | Outpatient (CLI) | payer MEDICARE, BC, SELFPAY ==
[2025-05-02 12:08] LABS: HCT 37.0 % (36.0-46.0); HGB 12.7 g/dL (11.2-15.7); MCH 29.6 pg (27.0-33.0); MCHC 34.3 % (32.0-36.0); MCV 86 fL (80-95); MPV 10.3 fL (8.0-11.0); Platelet Count 220 10^3/uL (130-400); RBC 4.29 10^6/uL (3.93-5.22); RDW 13.3 % (11.7-14.6); RDW-SD 41.3 fL; WBC 6.38 10^3/uL (4.4-10.8)
[2025-05-02 12:47] LABS: ALT 36 U/L (14-59); AST 22 U/L (15-37); Albumin 3.9 g/dL (3.4-5.0); Alkaline Phosphatase 72 U/L (46-116); Amylase 70 U/L (25-115); Anion Gap 10.5 mmol/L (3-11); BUN 21 mg/dL (7-18); Bilirubin, Total 0.5 mg/dL (0.2-1.0); CO2 28.5 mmol/L (21.0-32.0); Calcium 9.9 mg/dL (8.5-10.1); Chloride 106 mmol/L (98-107); Estimated GFR 59.86 (mL/min/1.73m2); Glucose 122 mg/dL (74-106); Lipase 60 U/L (<78); Potassium 3.8 mmol/L (3.5-5.1); Sodium 145 mmol/L (136-145); Total Protein 7.8 g/dL (6.4-8.2)
== END 2025-05-02 04:06 | disposition home or self-care (01) ==
LOC: LBO 04:06
PROVIDERS: PCP Nurse Practitioner Family; Visit Provider Nurse Practitioner Family
DX: R10.12 Left upper quadrant pain (principal)
CPT/HCPCS: 36415; 80053; 83690; 85027; 76700; 82150